=== PATIENT | male | born 1945 | race Caucasian/White ===

== ENCOUNTER 2020-07-06 12:02 | Emergency (ER) | payer OTHER ==
[2020-07-06 12:15] VITALS: BP 116/75; PULSE 84; TEMP 98.3; BMI 32.7
== END 2020-07-06 13:31 | disposition home or self-care (01) ==
LOC: JERFT 12:02
DX: R09.89 Other specified symptoms and signs involving the circulatory and respiratory systems (principal)
CPT/HCPCS: 70360-TC-FY; 99283-25